=== PATIENT | male | born 1995 | race Caucasian/White ===

== ENCOUNTER 2017-06-06 07:32 | Emergency (ER) | payer BC ==
[~2017-06-06] VITALS: Ht 188 cm; Wt 85.5 kg
[~2017-06-06 07:32] MED LIST: DICY10CA55 PO
[2017-06-06 07:36] VITALS: Ht 188 cm; Wt 85.5 kg
[2017-06-06 08:12] VITALS: TEMP 37
[2017-06-06 08:20] LABS: HEMATOCRIT 44.5 % (42-52); HEMOGLOBIN 15.4 g/dL (14.0-18.0); MEAN CELL VOLUME 85.4 fL (80-100); MEAN CORPUSCULAR HEMOGLOBIN 29.6 pg (25-34); MEAN CORPUSCULAR HGB CONC 34.6 g/dl (32-36); MEAN PLATELET VOLUME 9.9 fL (7.4-10.4); PLATELET COUNT 168 K/uL (130-400); RED CELL DISTRIBUTION WIDTH CV 12.8 % (11.5-14.5); RED CELL DISTRIBUTION WIDTH SD 39.8 fL (36.4-46.3); WHITE BLOOD COUNT 9.33 K/uL (4.8-10.8)
--- NOTE | 2017-06-06 08:22 | EMERGENCY ROOM VISIT NOTE ---
History First contact with patient: 07:40 Chief Complaint: RECTAL BLEEDING Stated Complaint: BLOODY STOOL,VOMITING,PAIN IN ABD Nursing Triage Summary: pt reports he started with left abd pain and today bloody stools. feels nauseated and vomited this am. has colonoscopy and uppper gi study on jun 13, cannot take pain in abd History of Present Illness The patient is a 22 year old male who presents to the Emergency Room with complaints of left lower quadrant abdominal pain which began Sunday. The patient states yesterday, the pain seemed to worsen. This morning, the patient states he had one episode of vomiting. He states he has had a decreased appetite and hasn't wanted to eat much, so he did vomit bile. He is already a patient of SHAWN James of [facility]. He has seen her regarding 4-5 month-long history of bloody stool which he describes as liquid. The patient states he continues to have the bloody diarrhea, but this is no different than it has been for the past several months. The patient did contact his canoe inspector yesterday, and did have an x-ray completed at [facility] yesterday. He states he was also started on Protonix and Dicyclomine yesterday. He took one dose of Dicyclomine, and notes it did not help, so despite being instructed to take it TID, he did not take anymore. He states the pain is intermittent, but describes it as sharp and "brings me to my knees" when it occurs. He rates it currently 2/ 10, but 10/10 at its worst. He last experienced the pain at 2:30am. The patient denies any fever, chills, nausea, constipation, chest pain, dyspnea, urinary symptoms, recent illness, cough, or congestion. He states the abdominal pain is new for him since the stool has been bloody for the past 4-5 months. Review of Systems A complete 10 point review of systems was reviewed with the patient with pertinent positives and negatives as per history of present illness. All else were negative. Past Medical/Surgical History Medical Problems: (1) No Known Active Medical Problems Family History No pertinent family history Social History Smoking Status: Never Smoker Alcohol Use: occasionally Marital Status: single Housing Status: lives with family Occupation Status: employed Current/Historical Medications Scheduled Dicyclomine Hcl (Bentyl), 1 CAP PO TID Pantoprazole (Protonix), 20 MG PO DAILY Physical Exam Vital Signs Date Time Temp Pulse Resp B/P (MAP) Pulse Ox O2 Delivery O2 Flow Rate FiO2 06/06/17 11:47 101 18 176/81 06/06/17 11:06 88 17 140/77 97 Room Air 06/06/17 09:48 78 18 105/71 94 Room Air 06/06/17 09:10 108 18 149/78 98 Room Air 06/06/17 08:12 37.0 115 18 166/92 98 Room Air 06/06/17 07:36 37.0 115 18 136/80 95 Room Air Physical Exam VITALS: Vitals are noted on the nurse's note and reviewed by myself. Vital signs stable. GENERAL: This is a 22-year-old white male, in no acute distress, nondiaphoretic , well-developed well-nourished. The patient is lying comfortably on the litter and does not appear to be in any significant discomfort. SKIN: The skin was without rashes, erythema, edema, or bruising. There is no tenting of the skin. Capillary reflex less than 2 seconds. HEAD: Normocephalic atraumatic. EARS: External auditory canals clear, tympanic membranes pearly acevedo without erythema or effusion bilaterally. EYES: Pupils equal round and reactive to light and accommodation. Conjunctivae without injection, sclerae without icterus. Extraocular movements intact. NOSE: Patent, turbinates without inflammation or discharge. No sinus tenderness. MOUTH: Mucous membranes moist. Tonsils are not enlarged. Pharynx without erythema or exudate. Uvula midline. Airway patent. Tongue does not deviate. NECK: Supple without nuchal rigidity. No lymphadenopathy. No thyromegaly. Cervical spine is nontender. No JVD. HEART: Regular rate and rhythm without murmurs gallops or rubs. LUNGS: Clear to auscultation bilaterally without wheezes, rales or rhonchi. No dullness to percussion. No retractions or accessory muscle use. ABDOMEN: Positive bowel sounds x 4. Normal tympanic percussion. Mild tenderness in the left lower quadrant. The abdomen is otherwise soft, nontender , without masses or organomegaly. Dockery sign negative. No guarding or rebound tenderness. Rovsing's test negative. MUSCULOSKELETAL: No muscle atrophy, erythema, or edema noted. Full range of motion without joint tenderness in all extremities. No tenderness to palpation. Normal gait. Strength 5/5 throughout. NEURO: Patient was alert and oriented to person place and time. Normal sensation to light and sharp touch. Deep tendon reflexes 2+ throughout. No focal neurological deficits. Medical Decision & Procedures ER Provider Diagnostic Interpretation: CBC was without leukocytosis, anemia, thrombocytopenia. CMP did not show any significant renal, hepatic, or electrolyte abnormalities. Lipase was normal. Urinalysis was positive for 4+ ketones. There were epithelial cells noted. There were no signs of infection, and no blood. ABD/PELVIS IV AND ORAL CONT CT DOSE: 314.57 mGy.cm HISTORY: Pain. Nausea. LLQ abdominal pain TECHNIQUE: Multiaxial CT images of the abdomen and pelvis were performed following the use of intravenous and oral contrast. A dose lowering technique was utilized adhering to the principles of ALARA. COMPARISON STUDY: None. FINDINGS: Lung bases are clear. Liver spleen and pancreas are uniform. Kidneys are negative for hydronephrosis. The upper abdominal bowel pattern is nonobstructive. There are findings of considerable wall thickening of the distal descending colon as well as bulk of the rectosigmoid. There is mild pericolonic infiltrative change. There is no evidence for abscess collection or obstruction. Remainder the colon is unremarkable. The appendix is normal. There are several small reactive periaortic nodes not exceeding 9 mm. There are several small reactive mesenteric nodes. Trace amount of free fluid within the pelvic cul-de-sac most likely reactive. IMPRESSION: 1. Nonspecific colitis with considerable wall thickening of the sigmoid and distal descending colon. 2. No evidence for drainable abscess or collection. 3. Small amount of free fluid within the pelvic cul-de-sac most likely reactive The above report was generated using voice recognition software. It may contain grammatical, syntax or spelling errors. Electronically signed by: Gigi Cavanaugh M.D. 06/06/2017 10:57 AM Dictated Date/Time: 06/06/2017 10:52 AM Laboratory Results 06/06/17 08:05 Red Blood Count 5.21, Mean Corpuscular Volume 85.4, Mean Corpuscular Hemoglobin 29.6, Mean Corpuscular Hemoglobin Concent 34.6, Mean Platelet Volume 9.9, Neutrophils (%) (Auto) 76.6, Lymphocytes (%) (Auto) 11.8, Monocytes (%) (Auto) 9.2, Eosinophils (%) (Auto) 2.0, Basophils (%) (Auto) 0.2, Neutrophils # (Auto) 7.14, Lymphocytes # (Auto) 1.10, Monocytes # (Auto) 0.86, Eosinophils # (Auto) 0.19, Basophils # (Auto) 0.02 06/06/17 08:05 Test 06/06/17 08:05 06/06/17 09:05 White Blood Count 9.33 K/uL (4.8-10.8) Red Blood Count 5.21 M/uL (4.7-6.1) Hemoglobin 15.4 g/dL (14.0-18.0) Hematocrit 44.5 % (42-52) Mean Corpuscular Volume 85.4 fL (80-100) Mean Corpuscular Hemoglobin 29.6 pg (25-34) Mean Corpuscular Hemoglobin Concent 34.6 g/dl (32-36) Platelet Count 168 K/uL (130-400) Mean Platelet Volume 9.9 fL (7.4-10.4) Neutrophils (%) (Auto) 76.6 % Lymphocytes (%) (Auto) 11.8 % Monocytes (%) (Auto) 9.2 % Eosinophils (%) (Auto) 2.0 % Basophils (%) (Auto) 0.2 % Neutrophils # (Auto) 7.14 K/uL (1.4-6.5) Lymphocytes # (Auto) 1.10 K/uL (1.2-3.4) Monocytes # (Auto) 0.86 K/uL (0.11-0.59) Eosinophils # (Auto) 0.19 K/uL (0-0.5) Basophils # (Auto) 0.02 K/uL (0-0.2) RDW Standard Deviation 39.8 fL (36.4-46.3) RDW Coefficient of Variation 12.8 % (11.5-14.5) Immature Granulocyte % (Auto) 0.2 % Immature Granulocyte # (Auto) 0.02 K/uL (0.00-0.02) Dohle Bodies 1+ Anion Gap 13.0 mmol/L (3-11) Est Creatinine Clear Calc Drug Dose 154.1 ml/min Estimated GFR () 140.7 Estimated GFR (Non- 121.4 BUN/Creatinine Ratio 18.0 (10-20) Calcium Level 9.1 mg/dl (8.5-10.1) Total Bilirubin 1.0 mg/dl (0.2-1) Aspartate Amino Transf (AST/SGOT) 12 U/L (15-37) Alanine Aminotransferase (ALT/SGPT) 18 U/L (12-78) Alkaline Phosphatase 58 U/L (45-117) Total Protein 7.4 gm/dl (6.4-8.2) Albumin 3.4 gm/dl (3.4-5.0) Globulin 4.0 gm/dl (2.5-4.0) Albumin/Globulin Ratio 0.9 (0.9-2) Lipase 73 U/L (73-393) Urine Color DK YELLOW Urine Appearance CLEAR (CLEAR) Urine pH 5.0 (4.5-7.5) Urine Specific [place] 1.031 (1.000-1.030) Urine Protein 1+ (NEG) Urine Glucose (UA) NEG (NEG) Urine Ketones 4+ (NEG) Urine Occult Blood NEG (NEG) Urine Nitrite NEG (NEG) Urine Bilirubin NEG (NEG) Urine Urobilinogen NEG (NEG) Urine Leukocyte Esterase NEG (NEG) Urine WBC (Auto) 1-5 /hpf (0-5) Urine RBC (Auto) 0-4 /hpf (0-4) Urine Hyaline Casts (Auto) 1-5 /lpf (0-5) Urine Epithelial Cells (Auto) 5-10 /lpf (0-5) Urine Bacteria (Auto) NEG (NEG) ED Course The patient was seen and evaluated as above in room B2. IV access was obtained and labs were drawn. Attempted to contact the patient's provider, SHAWN James from [facility]. She is not in the office this week. The resident had ordered the patient's medication and Xray yesterday, and is not in the office today either. The alumni secretary did look for the abdominal X-ray report, but states it is in progress and has not been read yet. (Our case management associate does not yet have access to [employer], so was unable to look for the x-ray here in the ED). I spoke with the patient regarding CT scan of the abdomen/pelvis vs. no scan. The patient has not had a scan since his GI symptoms began. Risks of radiation vs. benefits of potentially locating the source of the patient's symptoms were discussed. He would like to proceed with scan at this time. CT scan was performed. This was consistent with colitis. There is no abscess noted. I discussed these results with the patient at bedside. I did offer the patient pain medication and nausea medication. He declines. I encouraged him to use the Bentyl which was prescribed to him by his canoe inspector. He was also encouraged to eat a bland diet. He is to continue to follow up with his canoe inspector and have the scope was performed which are ready scheduled. Discharge instructions reviewed, and the patient was discharged home in good condition. Medical Decision Differential diagnosis includes: Diverticulitis, Crohn's Disease, Ulcerative Colitis, infectious colitis, c. diff., appendicitis, pancreatitis, cholecystitis , gallstones, UTI, nephrolithiasis, malignancy, and others This is a 22-year-old male who presents today complaining of left lower quadrant abdominal pain. He five-month history of bloody stool, which is being evaluated by gastroenterology already. The patient was unable to see his provider regarding the abdominal pain, but did call the office and was sent for an x-ray and given a prescription for Bentyl and Protonix by the resident. The patient is concerned that there could be something serious going on. He would like some answers or a diagnosis. I did have a long discussion with the patient regarding the possibility that we will not come to a definite diagnosis today, as the colonoscopy and EGD will be more sensitive test. The patient's symptoms are consistent with a colitis, however the etiology is uncertain. The patient will continue to follow up with his canoe inspector outpatient. Medication Reconcilliation Current Medication List: was personally reviewed by me Blood Pressure Screening Patient's blood pressure: Normal blood pressure Impression Primary Impression: Colitis Additional Impression: Abdominal pain Departure Information Dispostion Home / Self-Care Condition GOOD Referrals No Doctor, Assigned (PCP) Demi Berman ., SHAWN Patient Instructions ED Abdominal Pain Excl Appendx Male, My [facility] Additional Instructions You were seen in the emergency department today for left lower quadrant abdominal pain. Labs and imaging studies did not reveal any acute findings for your symptoms. Please take these dicyclomine which you were prescribed by your GI provider for the pain. After one week, if you are not experiencing improvement on the 20mg dose three times daily, you may increase to 40mg three times daily. Please continue to work closely with your canoe inspector regarding the bloody stool and abdominal pain. Please do not miss your appointment for the scope scheduled for next week. Return to the ED for worsening pain which is not relieved with medication, changing stool pattern, chest pain, fever, nausea, vomiting, or other concerning symptoms. Problem Qualifiers Additional Impression: Abdominal pain Abdominal location: left lower quadrant Qualified Codes: R10.32 - Left lower quadrant pain
[2017-06-06] MEDS ORDERED: PRT/20 PO (08:33)
[2017-06-06 08:38] LABS: ALBUMIN 3.4 gm/dl (3.4-5.0); CALCIUM 9.1 mg/dl (8.5-10.1); CREATININE 0.86 mg/dl (0.60-1.40); POTASSIUM 3.7 mmol/L (3.5-5.1)
[2017-06-06 08:40] LABS: BASO % 0.2 %; BASO ABS # 0.02 K/uL (0-0.2); EOS ABS # 0.19 K/uL (0-0.5); IG# 0.02 K/uL (0.00-0.02); LYMPH % 11.8 %; MONO % 9.2 %; MONO ABS # 0.86 K/uL (0.11-0.59); NEUT % 76.6 %; NEUT ABS # 7.14 K/uL (1.4-6.5)
[2017-06-06 08:41] LABS: TOTAL PROTEIN 7.4 gm/dl (6.4-8.2)
[2017-06-06] MEDS ORDERED: OPTIRAY 320 IV PRN (08:45)
--- NOTE | 2017-06-06 10:59 | DIAGNOSTIC IMAGING REPORT ---
ABD/PELVIS IV AND ORAL CONT CT DOSE: 314.57 mGy.cm HISTORY: Pain. Nausea. LLQ abdominal pain TECHNIQUE: Multiaxial CT images of the abdomen and pelvis were performed following the use of intravenous and oral contrast. A dose lowering technique was utilized adhering to the principles of ALARA. COMPARISON STUDY: None. FINDINGS: Lung bases are clear. Liver spleen and pancreas are uniform. Kidneys are negative for hydronephrosis. The upper abdominal bowel pattern is nonobstructive. There are findings of considerable wall thickening of the distal descending colon as well as bulk of the rectosigmoid. There is mild pericolonic infiltrative change. There is no evidence for abscess collection or obstruction. Remainder the colon is unremarkable. The appendix is normal. There are several small reactive periaortic nodes not exceeding 9 mm. There are several small reactive mesenteric nodes. Trace amount of free fluid within the pelvic cul-de-sac most likely reactive. IMPRESSION: 1. Nonspecific colitis with considerable wall thickening of the sigmoid and distal descending colon. 2. No evidence for drainable abscess or collection. 3. Small amount of free fluid within the pelvic cul-de-sac most likely reactive The above report was generated using voice recognition software. It may contain grammatical, syntax or spelling errors. Electronically signed by: Gigi Cavanaugh M.D. 06/06/2017 10:57 AM Dictated Date/Time: 06/06/2017 10:52 AM
[2017-06-06 11:06] VITALS: O2SAT 97
[2017-06-06 11:47] VITALS: BP 176/81; PULSE 101
[2017-06-07] MEDS ORDERED: MULT-506 PO (16:17)
[2017-06-07] MEDS ORDERED: ASCO100T4 PO (16:17)
[2017-06-07] MEDS ORDERED: PRT/20 PO (16:18)
[2017-06-10] MEDS ORDERED: PRD5 OR ×2 (13:55→13:59)
[2017-06-10] MEDS ORDERED: PRED20TA2 PO (13:55)
[2017-06-10] MEDS ORDERED: PRED10TA PO (13:55)
[2017-06-10] MEDS ORDERED: PRD20 OR (13:55)
[2017-06-10] MEDS ORDERED: PRD10 OR (13:59)
[2017-06-10] MEDS ORDERED: ASC400 PO (14:02)
[2017-06-10] MEDS ORDERED: RWSE PR (14:02)
[2017-06-10] MEDS ORDERED: CPR500 OR (14:39)
[2017-06-10] MEDS ORDERED: METR500T PO (14:39)
[2017-06-11] MEDS ORDERED: MESA800T2 OR (09:54)
== END 2017-06-06 11:49 | disposition home or self-care (01) ==
LOC: C.EDB 07:35
DX: K52.9 Noninfective gastroenteritis and colitis, unspecified (principal)

== ENCOUNTER 2017-06-07 14:37 | Inpatient (IN) | payer BC ==
[~2017-06-07] VITALS: Ht 190.5 cm; Wt 83.0 kg
[~2017-06-07 14:37] MED LIST changes: +PRT/20 PO
--- NOTE | 2017-06-07 14:51 | NUR ---
A: Pt arrived to room 450-1. ADT nurse paged for admission to be complete. Patient verbalizes no distress at this time. Will follow.
[2017-06-07 15:04] VITALS: BP 162/87; PULSE 92; TEMP 37.1; Ht 190.5 cm; Wt 83.0 kg
[2017-06-07] MEDS ORDERED: ONDANSETRON INJ 2 MG/ML 2 ML VIAL IV PRN (15:15)
[2017-06-07] MEDS ORDERED: ACETAMINOPHEN 325 MG TAB PO PRN (15:15)
[2017-06-07 16:00] VITALS: O2SAT 97
--- NOTE | 2017-06-07 16:00 | NUR ---
A: Pt a&Ox4. Independent OOB to the bathroom. Reports occasional abdominal pain but is pain free at this time. Pt is ordered IV antibiotics, IVF and IV steroids. Colonoscopy scheduled for tomorrow. Pt is to start bowel prep this afternoon. Pt is agreeable. Will continue to monitor.
--- NOTE | 2017-06-07 16:11 | Gastrointestinal Consultation ---
Gastrointestinal Consultation Date of Consultation: Jun 07, 2017 Attending Physician: Brina Acevedo Consulting Physician: Franco Keenan Reason for Consultation: Diarrhea ; possible UC History of Present Illness Patient is a 22 year old male who was sent as a direct admission by Dr. Wendi Tinajero for bloody diarrhea and possible dehydration. He's been having bloody diarrhea since 5 months ago, admitted about 40 lbs weight loss so far. In the last month diarrhea is worse, BM up to over 11x a day. He denies any fever, chills, CP, SOB. Does have LLQ area abd pain. Denies any sick contact but family does own a farm and he goes hunting. Has well water at home. He had been seen in outpt GI clinic by SHAWN James last week. Stool studies negative for infections, Cdiff. Arrangements made for outpt colonoscopy on . Was prescribed Bentyl and Protonix but said hasn't been able to take them. He however came to [facility] ED yesterday w worsening bloody diarrhea, pain and n/v. CBC, CMP relatively normal. No stool studies done. CT abd/pelvis w non specific thickening of sigmoid and distal descending colon area. No family hx of autoimmune diseases, colorectal ca, or IBD. Does chew tobacco, but no smoking, ETOH about 1 beer a day, no illicit drugs. Past Medical/Surgical History Medical Problems: (1) Colitis Status: Acute Past Medical History: None Past Surgical History: Blanchard teeth removal Family History No pertinent family history Social History Smoking Status: Never Smoker Alcohol Use: occasionally Drug Use: none Marital Status: single Housing Status: lives with family Occupation Status: employed Allergies Coded Allergies: Amoxicillin (Unverified Allergy, Severe, RASH, 06/06/17) Azithromycin (Unverified Allergy, Severe, RASH, 06/06/17) Current Medications Home Meds and Scripts Medications Dose Route/Sig Max Daily Dose Days Date Category Bentyl (Dicyclomine Hcl) 10 Mg Cap 1 Cap PO TID 06/06/17 Reported Protonix (Pantoprazole Sodium) 20 Mg Tab 20 Mg PO DAILY 06/06/17 Reported Review of Systems Constitutional: + weight loss, + weakness, No fever, No chills Respiratory: No cough, No shortness of breath Cardiac: No chest pain Abdomen: + see HPI, + pain (LLQ), + nausea, + vomiting, + diarrhea, + GI bleeding Skin: No rash, No itch, No jaundice Physical Exam Date Time Temp Pulse Resp B/P (MAP) Pulse Ox O2 Delivery O2 Flow Rate FiO2 06/07/17 15:04 37.1 92 16 162/87 Room Air General Appearance: WD/WN, no apparent distress Eyes: normal inspection, PERRL, EOMI Neck: supple, no JVD, trachea midline Respiratory/Chest: normal breath sounds, no respiratory distress, no accessory muscle use Cardiovascular: regular rate, rhythm, no gallop, no murmur Abdomen: normal bowel sounds, soft, + tenderness (LLQ) Extremities: normal inspection, no pedal edema, no calf tenderness Neurologic/Psych: alert, normal mood/affect, oriented x 3 Skin: normal color, no jaundice, no rash Laboratory Results Last 24 Hours Test 06/07/17 15:10 06/07/17 15:50 Impression Patient is a 22 year old male with bloody diarrhea, LLQ abd pain, poor PO intake , n/v. CBC, CMP, stool studies so far unremarkable. CT abd/pelvis w non specific sigmoid and distal descending colon thickening. Plan - Repeat basic labs and stool studies - IVF resuscitation - Methylprednisolone 20mg q6hrs IV - Cipro and Flagyl IV antibx - CL diet, NPO at midnight for colonoscopy tomorrow to r/o IBD. Bowel prep ordered. ATTESTATION: I have performed a history and physical examination of this patient and reviewed the electronic record. Specifically, his history is highly suggestive of ulcerative colitis. We will plan a colonoscopy and treat accordingly. I have discussed the case with SHAWN Carmen. The above note reflects my findings , conclusions, and recommendations. Franco Keenan MD
[2017-06-07] MEDS ORDERED: MULT-506 PO (16:17)
[2017-06-07] MEDS ORDERED: ASCO100T4 PO (16:17)
[2017-06-07] MEDS ORDERED: PRT/20 PO (16:18)
[2017-06-07 16:19] LABS: HEMATOCRIT 43.6 % (42-52); HEMOGLOBIN 15.4 g/dL (14.0-18.0); MEAN CELL VOLUME 83.4 fL (80-100); MEAN CORPUSCULAR HEMOGLOBIN 29.4 pg (25-34); MEAN CORPUSCULAR HGB CONC 35.3 g/dl (32-36); MEAN PLATELET VOLUME 10.1 fL (7.4-10.4); PLATELET COUNT 212 K/uL (130-400); RED CELL DISTRIBUTION WIDTH CV 12.8 % (11.5-14.5); RED CELL DISTRIBUTION WIDTH SD 38.3 fL (36.4-46.3); WHITE BLOOD COUNT 9.44 K/uL (4.8-10.8)
[2017-06-07 16:39] LABS: ALBUMIN 3.2 gm/dl (3.4-5.0); CALCIUM 9.1 mg/dl (8.5-10.1); CREATININE 0.81 mg/dl (0.60-1.40); POTASSIUM 3.5 mmol/L (3.5-5.1)
[2017-06-07 16:42] LABS: TOTAL PROTEIN 7.3 gm/dl (6.4-8.2)
[2017-06-07 16:52] LABS: BASO % 0.3 %; BASO ABS # 0.03 K/uL (0-0.2); EOS % 2.4 %; EOS ABS # 0.23 K/uL (0-0.5); IG# 0.03 K/uL (0.00-0.02); LYMPH % 14.5 %; LYMPH ABS # 1.37 K/uL (1.2-3.4); MONO % 11.2 %; MONO ABS # 1.06 K/uL (0.11-0.59); NEUT % 71.3 %; NEUT ABS # 6.72 K/uL (1.4-6.5)
[2017-06-07] MEDS ORDERED: POLYETHYLENE (MIRALAX) 17 GM PACK PO ONE ×2 (17:00→21:00)
[2017-06-07] MEDS ORDERED: BISACODYL 5 MG TABEC PO ONE (17:00)
--- NOTE | 2017-06-07 17:03 | History and Physical ---
History & Physical Date & Time of Service: Jun 07, 2017 ~ 15:15 Chief Complaint: BRBPR, Diarrhea Primary Care Physician: Gigi Abbasi M.D. History of Present Illness 22 year old male who was referred by direct admission by the GI clinic for dehydration and diarrhea. Patient reports his symptoms have been going on for the past 6 months and have been progressively getting worse. He reports up to 11 bowel movements per day. He is having bright red blood. He denies dark tarry stools. He has had some intermittent LLQ abdominal pain. He has had a poor appetite and developed vomiting the past two days. He denies hematemesis or coffee ground emesis. He reports a 40 pound weight loss. He has had chills but did not take his temperature. He reports feeling lightheaded and dizzy, no syncopal events. He denies chest pain, shortness of breath, palpitations. No urinary symptoms. He has had two ER visits for these symptoms, most recently being on 06/06. He had a CT abd/pelvis that showed wall thickening of the sigmoid and distal descending colon. At the time of my exam, patient is resting in bed in no acute distress. Past Medical/Surgical History Surgical Problems: (1) History of incision and drainage Status: Chronic (2) S/P wisdom tooth extraction Status: Chronic Family History negative for cancers, DM, and CVA Social History Smoking Status: Never Smoker Smokeless Tobacco Use: Yes Alcohol Use: 1 beer/day Immunizations History of Tetanus Vaccine?: Yes Tetanus Immunization Date: Mar 30, 2009 History of Pneumococcal: Yes Pneumococcal Date: 1993 Multi-Drug Resistant Organisms History of MDRO: No Allergies Coded Allergies: Amoxicillin (Unverified Allergy, Severe, RASH, 06/06/17) Azithromycin (Unverified Allergy, Severe, RASH, 06/06/17) Home Medications Scheduled Ascorbic Acid (Vitamin C), 100 MG PO DAILY Dicyclomine Hcl (Bentyl), 1 CAP PO TID Multivitamin (Multivitamin), 1 TAB PO DAILY Pantoprazole Sodium (Protonix), 1 TAB PO DAILY Review of Systems ROS per HPI, all other systems reviewed and negative Physical Exam Vital Signs Date Time Temp Pulse Resp B/P (MAP) Pulse Ox O2 Delivery O2 Flow Rate FiO2 06/07/17 15:04 37.1 92 16 162/87 Room Air General Appearance: no apparent distress, + thin Head: normocephalic, atraumatic Eyes: normal inspection, EOMI, sclerae normal ENT: hearing grossly normal, + pertinent finding (mucous membranes moist) Neck: supple, no JVD, trachea midline Respiratory/Chest: lungs clear, normal breath sounds, no respiratory distress Cardiovascular: regular rate, rhythm, no edema, normal peripheral pulses Abdomen/GI: normal bowel sounds, non tender, soft, no organomegaly Extremities/Musculoskelatal: normal inspection, no calf tenderness, normal capillary refill Neurologic/Psych: no motor/sensory deficits, alert, normal mood/affect, oriented x 3 Skin: normal color, warm/dry Diagnostics Laboratory Results Results Past 24 Hours Test 06/07/17 15:10 06/07/17 15:50 Range/Units White Blood Count 9.44 4.8-10.8 K/uL Red Blood Count 5.23 4.7-6.1 M/uL Hemoglobin 15.4 14.0-18.0 g/dL Hematocrit 43.6 42-52 % Mean Corpuscular Volume 83.4 80-100 fL Mean Corpuscular Hemoglobin 29.4 25-34 pg Mean Corpuscular Hemoglobin Concent 35.3 32-36 g/dl Platelet Count 212 130-400 K/uL Mean Platelet Volume 10.1 7.4-10.4 fL RDW Standard Deviation 38.3 36.4-46.3 fL RDW Coefficient of Variation 12.8 11.5-14.5 % Microbiology Results 06/07/17 C.difficile Toxin B Gene (PCR), Ordered Pending 06/07/17 Shiga Toxin Test, Ordered Pending 06/07/17 Stool Culture, Ordered Pending 06/07/17 Fungal Smear, Ordered Pending 06/07/17 Fungal Culture, Ordered Pending Impression Assessment and Plan DIARRHEA - patient presenting from the GI office for direction admission for evaluation of persistent bloody diarrhea and dehydration - symptoms have been going on for 6 months and patient has had a 40 pound weight loss - CT abd/pelvis from 06/06 - non specific sigmoid and distal descending colon thickening - per GI - suspicious for ulcerative colitis - will repeat labs and stool studies - IVF - start IV solumedrol 20mg q6h - Cipro and Flagyl - plan for colonoscopy tomorrow DVT PROPHYLAXIS - SCDs DISPO - In my clinical judgment this beneficiary meets acute admission criteria, established by [facility], that includes being hospitalized through two midnights. Attending Addendum: The patient was seen and examined Has been having Bloody diarrhea ~10-12 times daily for a while Failed Out patient treatment Was seen by the GI today and was advised to come in for Colonoscopy No extraintestinal symptoms O/E Minimal distress at rest Hemodynamically stable Chest-clear Abdomen-soft ,tender LLQ ,no guarding and or rigidity Labs noted Agree with assessment and plan. Dr Reza Acevedo Advanced Directives Existing Living Will: No Existing Power of Estate Planner: No VTE Prophylaxis VTE Risk Assessment Done? Y/N: Yes Risk Level: Low
[2017-06-07] MEDS: METRONIDAZOLE / NSS 500 MG in PREMIXED NSS 100 ML IV SCH ×2 (17:24→23:59)
[2017-06-07] MEDS: SODIUM CHLORIDE 0.9% 1000ML 1,000 ML IV SCH (17:25)
[2017-06-07] MEDS: CIPROFLOXACIN / D5W 400 MG in PREMIXED IN D5W 200 ML IV SCH (17:28)
[2017-06-07] MEDS: METHYLPREDNISOLONE IV 20 MG in SYRINGE 0 ML IV SCH (17:31)
[2017-06-07] MEDS: DICYCLOMINE HCL 10 MG CAP PO SCH (19:43)
[2017-06-07 19:53] VITALS: BP 156/86; PULSE 102; TEMP 36.9; O2SAT 97
--- NOTE | 2017-06-07 20:00 | NUR ---
OBS: Pt tolerated clear liquid diet and bowel prep thus far. No vomiting. IV zofran given for nausea with increased intake of fluids due to the bowel prep. Pt verbalizes no needs at this time. IVF infusing. Pt pleasant with care. BP and HR slightly elevated. Will continue to monitor.
--- NOTE | 2017-06-07 22:12 | NUR ---
A: Patient is A&Ox4. He requests to change his person to notify from his mother to his fiance, Jose Sonia. [place] made changes in chart. Patient verbalizes that he wishes Jose to act as POA should he not be able to make decisions for himself. The patient was educated that selecting a POA is a legal process and would take official documentation but this RN would make note of this request.
[2017-06-07 23:48] VITALS: BP 156/83; PULSE 95; TEMP 36.9; O2SAT 96
[2017-06-08 00:05] VITALS: O2SAT 97
--- NOTE | 2017-06-08 00:05 | NUR ---
OBS: Upon assessment pt alert & oriented x 4. Lungs clear. Abdomen soft, nondistended. IVF per MD order. Pt NPO after MN for colonoscopy in AM. Pt able to finish prep. Independent in room. Will continue to monitor.
--- NOTE | 2017-06-08 04:00 | NUR ---
OBS: No change in pt condition. Pt resting in bed with eyes closed. Denies further needs. NPO for procedure in AM.
[2017-06-08] MEDS: SODIUM CHLORIDE 0.9% 1000ML 1,000 ML IV SCH ×2 (05:19→20:09)
[2017-06-08] MEDS: CIPROFLOXACIN / D5W 400 MG in PREMIXED IN D5W 200 ML IV SCH ×2 (05:19→16:18)
[2017-06-08] MEDS: METHYLPREDNISOLONE IV 20 MG in SYRINGE 0 ML IV SCH ×5 (05:50→23:23)
[2017-06-08 07:15] VITALS: BP 140/79; PULSE 76; TEMP 36.4; O2SAT 96
[2017-06-08] MEDS: METRONIDAZOLE / NSS 500 MG in PREMIXED NSS 100 ML IV SCH ×3 (07:46→23:23)
--- NOTE | 2017-06-08 08:00 | NUR ---
OBS Note/ID Note: Patient alert and oriented x4, vital signs stable, lung sounds clear on RA, pt denies any pain and states that it is improved from previous but still continuing to have intermittent pain, IV fluids infusing per MD order, pt tolerating NPO, ambulating independently in the room, call paul in reach, will continue to monitor, awaiting colonoscopy today, discharge plan uncertain at this time
--- NOTE | 2017-06-08 08:38 | History & Physical Bridge Note ---
H&P Re-Evaluation Bridge Note: I have examined the patient, reviewed the History & Physical and in the interval since the performance of the History & Physical I have noted the following changes of clinical significance: No changes noted
[2017-06-08] MEDS ORDERED: PROPOFOL IV EMULSION 10 MG/ML 20 ML VIAL IV ONE (09:04)
[2017-06-08] MEDS ORDERED: LIDOCAINE HCL 2% 2 ML VIAL (20MG/ML) ONE (09:04)
--- NOTE | 2017-06-08 09:19 | GI REPORT ---
Procedure Date: 06/08/2017 8:46 AM Procedure: Colonoscopy Indications: Chronic diarrhea, Hematochezia Medicines: Monitored Anesthesia Care Complications: No immediate complications. Estimated blood loss: None. Estimated Blood Loss: Estimated blood loss: none. Procedure: Pre-Anesthesia Assessment: - Prior to the procedure, a History and Physical was performed, and patient medications, allergies and sensitivities were reviewed. The patient's tolerance of previous anesthesia was reviewed. - ASA Grade Assessment: II - A patient with mild systemic disease. After I obtained informed consent, the scope was passed under direct vision. Throughout the procedure, the patient's blood pressure, pulse, and oxygen saturations were monitored continuously. The scope was introduced through the anus and advanced to the terminal ileum, with identification of the appendiceal orifice and IC valve. The colonoscopy was performed without difficulty. The patient tolerated the procedure well. The quality of the bowel preparation was adequate. The bowel preparation used was split dose MIralax. Findings: Inflammation characterized by altered vascularity, congestion (edema), erosions and granularity was found in a continuous and circumferential pattern from the rectum to the splenic flexure and from the ascending colon to the cecum. The severity of inflammation was worst in the rectum and sigmoid. The transverse colon was relatively spared. The inflammation was moderate to severe. Biopsies were taken with a cold forceps for histology. Fluid aspiration was performed through the scope suction channel. The amount of fluid collected was 10 mL. Sample(s) were sent for microbiology. The terminal ileum appeared normal. Impression: - Colitis. Inflammation was found from the rectum to the splenic flexure and from the ascending colon to the cecum. This was moderate in severity. Biopsied. - The examined portion of the ileum was normal. Recommendation: - Return patient to [facility] for ongoing care. Franco Keenan M.D. Franco Keenan MD 06/08/2017 9:18:46 AM This report has been signed electronically. Note Initiated On: 06/08/2017 8:46 AM I attest to the content of the Intraoperative Record and orders documented therein, exceptions below
--- NOTE | 2017-06-08 09:20 | Anesthesiology Progress Note ---
Anesthesia Post Op Note Date & Time Jun 08, 2017 at 09:20 Vital Signs Pain Intensity: 0.0 Vital Signs Past 12 Hours Date Time Temp Pulse Resp B/P (MAP) Pulse Ox O2 Delivery O2 Flow Rate FiO2 06/08/17 09:14 36.1 82 18 146/72 (96) 96 Room Air 06/08/17 08:32 36.4 87 18 143/79 (100) 96 Room Air 06/08/17 07:40 Room Air 06/08/17 07:15 36.4 76 18 140/79 (99) 96 Room Air 06/08/17 00:05 97 Room Air 06/07/17 23:48 36.9 95 18 156/83 (107) 96 Room Air Notes Mental Status: alert / awake / arousable, participated in evaluation Pt Amnestic to Procedure: Yes Nausea / Vomiting: adequately controlled Pain: adequately controlled Airway Patency, RR, SpO2: stable & adequate BP & HR: stable & adequate Hydration State: stable & adequate Anesthetic Complications: no major complications apparent
[2017-06-08] MEDS: DICYCLOMINE HCL 10 MG CAP PO SCH ×3 (10:32→20:09)
[2017-06-08] MEDS: MULTIVITAMIN TAB PO SCH (11:21)
[2017-06-08] MEDS: PANTOprazole SOD 40 MG TAB PO SCH (11:22)
[2017-06-08] MEDS: ASCORBIC ACID 500 MG TAB PO SCH (11:22)
--- NOTE | 2017-06-08 12:00 | NUR ---
OBS Note: Patient alert and oriented, returned from procedure at 1010, pt resting comfortably in bed, fiance at bedside, further assessment remains unchanged from previous note, call paul in reach, will continue to monitor
[2017-06-08 12:15] LABS: HEP C IGG 13 YRS+OLDER_RFLX NEG (NEG)
[2017-06-08] MEDS ORDERED: NURSING VERBAL MED ORDER ONE (12:45)
[2017-06-08] MEDS ORDERED: POTASSIUM CHLORIDE 20 MEQ TABCR PO ONE (14:45)
--- NOTE | 2017-06-08 14:53 | Progress Note ---
Progress Note Date of Service Jun 08, 2017. Progress Note Pt had colonoscopy which showed colitis, inflammation from rectum to splenic flexure, ascending colon to cecum. Biopsied. Path pending. - Advanced diet. - Continue Cipro/Flagyl coverage for at least 10 days - Started on Mesalamine 1600mg TID PO, Mesalamine 4g [place] enema qHS - Likely may need biologics as well, thus TB quantiferon test, acute hepatitis serologies obtained. Send message to GI clinic staff to check with pt's insurance about Humira vs Remicade coverage. - IV steroids, on DC may convert to PO form and taper as follows: Prednisone 40mg daily x 1 week, then 30mg daily x 1 week, 20mg daily x 1 week, 15mg daily x 1 week, 10mg daily x 1 week, then 5mg daily x 1 week. - No contraindication to DC home over weekend if tolerating diet well, diarrhea , bloody stools better.
[2017-06-08 15:38] VITALS: BP 150/76; PULSE 80; TEMP 36.7; O2SAT 96
[2017-06-08 16:00] VITALS: O2SAT 96
[2017-06-08 16:07] LABS: BASO % 0.1 %; BASO ABS # 0.01 K/uL (0-0.2); HEMATOCRIT 42.5 % (42-52); HEMOGLOBIN 14.9 g/dL (14.0-18.0); IG# 0.04 K/uL (0.00-0.02); LYMPH ABS # 0.66 K/uL (1.2-3.4); MEAN CORPUSCULAR HEMOGLOBIN 29.4 pg (25-34); MEAN PLATELET VOLUME 10.1 fL (7.4-10.4); MONO % 6.3 %; MONO ABS # 0.69 K/uL (0.11-0.59); NEUT % 87.2 %; NEUT ABS # 9.54 K/uL (1.4-6.5); PLATELET COUNT 260 K/uL (130-400); RED CELL DISTRIBUTION WIDTH CV 12.7 % (11.5-14.5); RED CELL DISTRIBUTION WIDTH SD 38.3 fL (36.4-46.3); WHITE BLOOD COUNT 10.94 K/uL (4.8-10.8)
[2017-06-08 16:15] LABS: MEAN CORPUSCULAR HGB CONC 35.1 g/dl (32-36)
[2017-06-08] MEDS: MESALAMINE 400 MG CAPDR PO SCH (16:41)
[2017-06-08 16:43] LABS: ALBUMIN 2.9 gm/dl (3.4-5.0); CREATININE 1.02 mg/dl (0.60-1.40); POTASSIUM 3.9 mmol/L (3.5-5.1); TOTAL PROTEIN 6.8 gm/dl (6.4-8.2)
--- NOTE | 2017-06-08 17:15 | Progress Note ---
Internal Med Progress Note Date of Service: Jun 08, 2017. Provider Documentation: SUBJECTIVE: Patient s/p colonoscopy. Comfortable and reports diminished abdominal discomfort but went to the bathroom afterwards and saw blood in stool still OBJECTIVE: Exam: General Appearance: no apparent distress Head: normocephalic, atraumatic Eyes: normal inspection, EOMI ENT: hearing grossly normal Neck: supple, no JVD, trachea midline Respiratory/Chest: lungs clear, normal breath sounds, no respiratory distress Cardiovascular: regular rate, rhythm, no edema, normal peripheral pulses Abdomen/GI: normal bowel sounds, non tender, soft, no organomegaly Extremities/Musculoskelatal: normal inspection, no calf tenderness, normal capillary refill Neurologic/Psych: no motor/sensory deficits, alert, normal mood/affect, oriented x 3 ASSESSMENT & PLAN: s/p colonoscopy on : Inflammation characterized by altered vascularity, congestion (edema), erosions and granularity was found in a continuous and circumferential pattern from the rectum to the splenic flexure and from the ascending colon to the cecum. The severity of inflammation was worst in the rectum and sigmoid. The transverse colon was relatively spared. The inflammation was moderate to severe. Biopsies were taken with a cold forceps for histology. Fluid aspiration was performed through the scope suction channel. The amount of fluid collected was 10 mL. Sample(s) were sent for microbiology. The terminal ileum appeared normal. Impression: Colitis. Inflammation was found from the rectum to the splenic flexure and from the ascending colon to the cecum. This was moderate in severity. Following GI recommendations for colitis: "- Advanced diet. - Continue Cipro/Flagyl coverage for at least 10 days - Started on Mesalamine 1600mg TID PO, Mesalamine 4g [place] enema qHS - Likely may need biologics as well, thus TB quantiferon test, acute hepatitis serologies obtained. Send message to GI clinic staff to check with pt's insurance about Humira vs Remicade coverage. - IV steroids, on DC may convert to PO form and taper as follows: Prednisone 40mg daily x 1 week, then 30mg daily x 1 week, 20mg daily x 1 week, 15mg daily x 1 week, 10mg daily x 1 week, then 5mg daily x 1 week. - No contraindication to DC home over weekend if tolerating diet well, diarrhea , bloody stools better." Labs drawn after reported episode of blood in stool have been stable with Hgb 14.9 Disposition and plan: will continue to observe the patient overnight and continue IV fluids while advancing diet, repeat labs on AM of 06/09/17. For when patient's labs stable and symptoms resolving, patient can then follow up with GI clinic and primary care Dr. Bobbi James on 06/12/17 at 12: 45 AM at [facility] in [facility] For re-scheduling [facility] appointments, patient can call [phone] Vital Signs: Date Time Temp Pulse Resp B/P (MAP) Pulse Ox O2 Delivery O2 Flow Rate FiO2 06/08/17 15:38 36.7 80 18 150/76 (100) 96 Room Air 06/08/17 09:43 69 18 150/98 (115) 99 Room Air 06/08/17 09:28 68 18 130/98 (109) 97 Room Air 06/08/17 09:14 36.1 82 18 146/72 (96) 96 Room Air 06/08/17 08:32 36.4 87 18 143/79 (100) 96 Room Air 06/08/17 07:40 Room Air 06/08/17 07:15 36.4 76 18 140/79 (99) 96 Room Air 06/08/17 00:05 97 Room Air 06/07/17 23:48 36.9 95 18 156/83 (107) 96 Room Air 06/07/17 19:53 36.9 102 18 156/86 (109) 97 Room Air Lab Results: Results Past 24 Hours Test 06/08/17 08:53 06/08/17 10:25 06/08/17 10:44 06/08/17 15:55 Range/Units Hepatitis B Surface Antigen NEG NEG Hepatitis B Surface Antibody NEG Hepatitis C Antibody NEG NEG White Blood Count 10.94 4.8-10.8 K/uL Red Blood Count 5.06 4.7-6.1 M/uL Hemoglobin 14.9 14.0-18.0 g/dL Hematocrit 42.5 42-52 % Mean Corpuscular Volume 84.0 80-100 fL Mean Corpuscular Hemoglobin 29.4 25-34 pg Mean Corpuscular Hemoglobin Concent 35.1 32-36 g/dl Platelet Count 260 130-400 K/uL Mean Platelet Volume 10.1 7.4-10.4 fL Neutrophils (%) (Auto) 87.2 % Lymphocytes (%) (Auto) 6.0 % Monocytes (%) (Auto) 6.3 % Eosinophils (%) (Auto) 0.0 % Basophils (%) (Auto) 0.1 % Neutrophils # (Auto) 9.54 1.4-6.5 K/uL Lymphocytes # (Auto) 0.66 1.2-3.4 K/uL Monocytes # (Auto) 0.69 0.11-0.59 K/uL Eosinophils # (Auto) 0.00 0-0.5 K/uL Basophils # (Auto) 0.01 0-0.2 K/uL RDW Standard Deviation 38.3 36.4-46.3 fL RDW Coefficient of Variation 12.7 11.5-14.5 % Immature Granulocyte % (Auto) 0.4 % Immature Granulocyte # (Auto) 0.04 0.00-0.02 K/uL Sodium Level 137 136-145 mmol/L Potassium Level 3.9 3.5-5.1 mmol/L Chloride Level 104 98-107 mmol/L Carbon Dioxide Level 27 21-32 mmol/L Anion Gap 7.0 3-11 mmol/L Blood Urea Nitrogen 13 7-18 mg/dl Creatinine 1.02 0.60-1.40 mg/dl Est Creatinine Clear Calc Drug Dose 131.1 ml/min Estimated GFR () 118.7 Estimated GFR (Non- 102.4 BUN/Creatinine Ratio 12.4 10-20 Random Glucose 131 70-99 mg/dl Calcium Level 9.0 8.5-10.1 mg/dl Magnesium Level 2.1 1.8-2.4 mg/dl Total Bilirubin 0.4 0.2-1 mg/dl Aspartate Amino Transf (AST/SGOT) 12 15-37 U/L Alanine Aminotransferase (ALT/SGPT) 18 12-78 U/L Alkaline Phosphatase 58 45-117 U/L Total Protein 6.8 6.4-8.2 gm/dl Albumin 2.9 3.4-5.0 gm/dl Globulin 3.9 2.5-4.0 gm/dl Albumin/Globulin Ratio 0.7 0.9-2 Microbiology Results 06/07/17 MRSA DNA Surveillance Screen - Final, Complete Specimen Negative for MRSA by DNA Probe 06/08/17 Rotavirus Antigen - Final, Complete SPECIMEN NEGATIVE FOR ROTAVIRUS ANTIGEN 06/08/17 WBC Smear, Received Pending 06/08/17 Shiga Toxin Test, Received Pending 06/08/17 Stool Culture, Received Pending
[2017-06-08] MEDS: MESALAMINE 4 GM/60 ML ENEMA BTL PR SCH (21:59)
[2017-06-08 23:50] VITALS: BP 157/71; PULSE 88; TEMP 36.6; O2SAT 97
[2017-06-09] MEDS: CIPROFLOXACIN / D5W 400 MG in PREMIXED IN D5W 200 ML IV SCH ×2 (04:01→15:49)
[2017-06-09] MEDS: METHYLPREDNISOLONE IV 20 MG in SYRINGE 0 ML IV SCH ×4 (05:41→23:13)
[2017-06-09] MEDS: METRONIDAZOLE / NSS 500 MG in PREMIXED NSS 100 ML IV SCH ×3 (07:11→23:13)
[2017-06-09] MEDS: SODIUM CHLORIDE 0.9% 1000ML 1,000 ML IV SCH ×2 (07:11→17:30)
[2017-06-09] MEDS: MULTIVITAMIN TAB PO SCH (07:12)
[2017-06-09] MEDS: MESALAMINE 400 MG CAPDR PO SCH ×3 (07:12→17:30)
[2017-06-09] MEDS: DICYCLOMINE HCL 10 MG CAP PO SCH ×3 (07:12→20:29)
[2017-06-09] MEDS: PANTOprazole SOD 40 MG TAB PO SCH (07:12)
[2017-06-09] MEDS: ASCORBIC ACID 500 MG TAB PO SCH (07:12)
[2017-06-09 07:21] VITALS: BP 145/73; PULSE 76; TEMP 36.6; O2SAT 97
--- NOTE | 2017-06-09 08:00 | NUR ---
ID: Patient admitted for diarrhea and dizziness. A&OX4. Denies pain, SOB, N/V. NSS infusing at 100ml/hr in the left wrist. Intermittent antibiotics. No edema, positive pulses. Lungs are clear throughout on room air. Abdomen is soft, nontender, nondistended. Per patient report, there is still trace amounts of blood in his stool. Independent in the room. Hourly rounding. Encouraged to ring for assistance. Will continue to monitor.
[2017-06-09 08:18] LABS: EOS % 0.1 %; EOS ABS # 0.01 K/uL (0-0.5); HEMATOCRIT 39.8 % (42-52); HEMOGLOBIN 13.5 g/dL (14.0-18.0); IG# 0.03 K/uL (0.00-0.02); LYMPH ABS # 0.79 K/uL (1.2-3.4); MEAN CELL VOLUME 84.9 fL (80-100); MEAN CORPUSCULAR HEMOGLOBIN 28.8 pg (25-34); MONO % 7.6 %; NEUT % 81.9 %; NEUT ABS # 6.47 K/uL (1.4-6.5); PLATELET COUNT 278 K/uL (130-400); RED CELL DISTRIBUTION WIDTH CV 12.8 % (11.5-14.5); RED CELL DISTRIBUTION WIDTH SD 39.4 fL (36.4-46.3)
[2017-06-09 08:23] LABS: MEAN CORPUSCULAR HGB CONC 33.9 g/dl (32-36)
[2017-06-09 08:39] LABS: ALBUMIN 2.7 gm/dl (3.4-5.0); CALCIUM 8.4 mg/dl (8.5-10.1); CREATININE 0.86 mg/dl (0.60-1.40); POTASSIUM 3.6 mmol/L (3.5-5.1); TOTAL PROTEIN 6.2 gm/dl (6.4-8.2)
[2017-06-09] MEDS ORDERED: POTASSIUM CHLORIDE 20 MEQ TABCR PO STA (11:09)
[2017-06-09 15:53] VITALS: BP 135/79; PULSE 75; TEMP 36.6; O2SAT 96
--- NOTE | 2017-06-09 18:36 | Progress Note ---
Internal Med Progress Note Date of Service: Jun 09, 2017. Provider Documentation: SUBJECTIVE: Patient seen and examined. No acute abdominal pain. However Continues to report of blood in stool OBJECTIVE: Exam: General Appearance: no apparent distress Head: normocephalic, atraumatic Eyes: normal inspection, EOMI ENT: hearing grossly normal Neck: supple, no JVD, trachea midline Respiratory/Chest: lungs clear, normal breath sounds, no respiratory distress Cardiovascular: regular rate, rhythm, no edema, normal peripheral pulses Abdomen/GI: normal bowel sounds, non tender, soft, no organomegaly Extremities/Musculoskelatal: normal inspection, no calf tenderness, normal capillary refill Neurologic/Psych: no motor/sensory deficits, alert, normal mood/affect, oriented x 3 ASSESSMENT & PLAN: s/p colonoscopy on : Inflammation characterized by altered vascularity, congestion (edema), erosions and granularity was found in a continuous and circumferential pattern from the rectum to the splenic flexure and from the ascending colon to the cecum. The severity of inflammation was worst in the rectum and sigmoid. The transverse colon was relatively spared. The inflammation was moderate to severe. Biopsies were taken with a cold forceps for histology. Fluid aspiration was performed through the scope suction channel. The amount of fluid collected was 10 mL. Sample(s) were sent for microbiology. The terminal ileum appeared normal. Impression: Colitis. Inflammation was found from the rectum to the splenic flexure and from the ascending colon to the cecum. This was moderate in severity. Following GI recommendations for colitis: - Continue Cipro/Flagyl coverage for at least 10 days - Started on Mesalamine 1600mg TID PO, Mesalamine 4g [place] enema qHS - Likely may need biologics as well, thus TB quantiferon test, acute hepatitis serologies obtained. Send message to GI clinic staff to check with pt's insurance about Humira vs Remicade coverage. - IV steroids, on DC may convert to PO form and taper as follows: Prednisone 40mg daily x 1 week, then 30mg daily x 1 week, 20mg daily x 1 week, 15mg daily x 1 week, 10mg daily x 1 week, then 5mg daily x 1 week. Patient's continues to report of having blood in stool. Is hemodynamically stable and comfortable however Hgb downtrending from admission Hgb 15.4 to 14.9 to 13.5. Disposition and plan: will continue to monitor patient in hospital due to blood in stool and downtrending Hgb For when patient's labs stable and symptoms resolving, patient can then follow up with GI clinic and primary care Dr. Bobbi James on 06/12/17 at 12: 45 AM at [facility] in [facility] For re-scheduling [facility] appointments, patient can call [phone] Vital Signs: Date Time Temp Pulse Resp B/P (MAP) Pulse Ox O2 Delivery O2 Flow Rate FiO2 06/09/17 16:00 Room Air 06/09/17 15:53 36.6 75 16 135/79 (97) 96 Room Air 06/09/17 08:00 Room Air 06/09/17 07:21 36.6 76 16 145/73 (97) 97 Room Air 06/08/17 23:50 36.6 88 18 157/71 (99) 97 Room Air 06/08/17 23:25 Room Air Lab Results: Results Past 24 Hours Test 06/09/17 07:58 Range/Units White Blood Count 7.90 4.8-10.8 K/uL Red Blood Count 4.69 4.7-6.1 M/uL Hemoglobin 13.5 14.0-18.0 g/dL Hematocrit 39.8 42-52 % Mean Corpuscular Volume 84.9 80-100 fL Mean Corpuscular Hemoglobin 28.8 25-34 pg Mean Corpuscular Hemoglobin Concent 33.9 32-36 g/dl Platelet Count 278 130-400 K/uL Mean Platelet Volume 10.0 7.4-10.4 fL Neutrophils (%) (Auto) 81.9 % Lymphocytes (%) (Auto) 10.0 % Monocytes (%) (Auto) 7.6 % Eosinophils (%) (Auto) 0.1 % Basophils (%) (Auto) 0.0 % Neutrophils # (Auto) 6.47 1.4-6.5 K/uL Lymphocytes # (Auto) 0.79 1.2-3.4 K/uL Monocytes # (Auto) 0.60 0.11-0.59 K/uL Eosinophils # (Auto) 0.01 0-0.5 K/uL Basophils # (Auto) 0.00 0-0.2 K/uL RDW Standard Deviation 39.4 36.4-46.3 fL RDW Coefficient of Variation 12.8 11.5-14.5 % Immature Granulocyte % (Auto) 0.4 % Immature Granulocyte # (Auto) 0.03 0.00-0.02 K/uL Sodium Level 137 136-145 mmol/L Potassium Level 3.6 3.5-5.1 mmol/L Chloride Level 104 98-107 mmol/L Carbon Dioxide Level 27 21-32 mmol/L Anion Gap 7.0 3-11 mmol/L Blood Urea Nitrogen 10 7-18 mg/dl Creatinine 0.86 0.60-1.40 mg/dl Est Creatinine Clear Calc Drug Dose 155.5 ml/min Estimated GFR () 140.7 Estimated GFR (Non- 121.4 BUN/Creatinine Ratio 11.8 10-20 Random Glucose 134 70-99 mg/dl Calcium Level 8.4 8.5-10.1 mg/dl Magnesium Level 2.1 1.8-2.4 mg/dl Total Bilirubin 0.3 0.2-1 mg/dl Aspartate Amino Transf (AST/SGOT) 10 15-37 U/L Alanine Aminotransferase (ALT/SGPT) 16 12-78 U/L Alkaline Phosphatase 52 45-117 U/L Total Protein 6.2 6.4-8.2 gm/dl Albumin 2.7 3.4-5.0 gm/dl Globulin 3.5 2.5-4.0 gm/dl Albumin/Globulin Ratio 0.8 0.9-2
[2017-06-09 19:34] LABS: HEMATOCRIT 39.4 % (42-52); HEMOGLOBIN 13.2 g/dL (14.0-18.0); MEAN CELL VOLUME 86.2 fL (80-100); MEAN CORPUSCULAR HEMOGLOBIN 28.9 pg (25-34); PLATELET COUNT 256 K/uL (130-400); RED CELL DISTRIBUTION WIDTH CV 12.7 % (11.5-14.5); RED CELL DISTRIBUTION WIDTH SD 40.2 fL (36.4-46.3); WHITE BLOOD COUNT 8.79 K/uL (4.8-10.8)
[2017-06-09 19:43] LABS: MEAN CORPUSCULAR HGB CONC 33.5 g/dl (32-36)
[2017-06-09] MEDS: MESALAMINE 4 GM/60 ML ENEMA BTL PR SCH (22:00)
[2017-06-09 23:18] VITALS: BP 146/67; PULSE 57; TEMP 36.6; O2SAT 97
[2017-06-10] MEDS: CIPROFLOXACIN / D5W 400 MG in PREMIXED IN D5W 200 ML IV SCH (04:17)
[2017-06-10] MEDS: SODIUM CHLORIDE 0.9% 1000ML 1,000 ML IV SCH ×2 (04:18→14:00)
[2017-06-10] MEDS: METHYLPREDNISOLONE IV 20 MG in SYRINGE 0 ML IV SCH ×2 (06:14→11:59)
[2017-06-10 07:05] VITALS: BP 152/77; PULSE 65; TEMP 36.6; O2SAT 97
[2017-06-10] MEDS: METRONIDAZOLE / NSS 500 MG in PREMIXED NSS 100 ML IV SCH (07:14)
[2017-06-10] MEDS: DICYCLOMINE HCL 10 MG CAP PO SCH ×2 (07:53→14:15)
[2017-06-10] MEDS: MULTIVITAMIN TAB PO SCH (07:53)
[2017-06-10] MEDS: MESALAMINE 400 MG CAPDR PO SCH ×2 (07:53→11:59)
[2017-06-10] MEDS: ASCORBIC ACID 500 MG TAB PO SCH (07:53)
[2017-06-10] MEDS: PANTOprazole SOD 40 MG TAB PO SCH (07:53)
--- NOTE | 2017-06-10 08:49 | Gastroenterology Progress Note ---
Progress Note Date of Service: Jun 10, 2017 Subjective Pt evaluation today including: conversation w/ patient, physical exam, chart review, lab review, review of studies, review of inpatient medication list Feeling better overall. Had 2-3 BM yesterday. One this Am. Some blood but improved. No abd pain. TOlerating diet. Review of Systems 12 systems reviewed and negative except as noted Medications Current Inpatient Medications Medications (Trade) Dose Ordered Sig/Kb Route Start Time Stop Time Status Last Admin Dose Admin Acetaminophen (Tylenol Tab) 650 mg Q4H PRN PO 06/07/17 15:15 07/07/17 15:14 Ondansetron HCl (Zofran Inj) 4 mg Q6H PRN IV 06/07/17 15:15 07/07/17 15:14 06/07/17 19:43 4 MG Ciprofloxacin/ Dextrose 400 mg/ Prmx 200 ml @ 100 mls/hr Q12H IV 06/07/17 16:00 06/17/17 15:59 06/10/17 04:17 100 MLS/HR Metronidazole 500 mg/Prmx 100 ml @ 100 mls/hr Q8H IV 06/07/17 15:30 06/17/17 15:29 06/10/17 07:14 100 MLS/HR Methylprednisolone Sodium Succinate 20 mg/Syringe 0.32 ml @ 1.5 mls/min Q6 IV 06/07/17 18:00 07/07/17 17:59 06/10/17 06:14 1.5 MLS/MIN Sodium Chloride 1,000 ml @ 100 mls/hr Q10H IV 06/07/17 16:15 07/07/17 16:14 06/10/17 04:18 100 MLS/HR Dicyclomine HCl (Bentyl Cap) 10 mg TID PO 06/07/17 20:00 07/07/17 19:59 06/10/17 07:53 10 MG Multivitamins (Multivitamin Tab) 1 tab DAILY PO 06/08/17 08:00 07/08/17 07:59 06/10/17 07:53 1 TAB Ascorbic Acid (Vitamin C Tab) 500 mg DAILY PO 06/08/17 08:00 07/08/17 07:59 06/10/17 07:53 500 MG Pantoprazole Sodium (Protonix Tab) 40 mg DAILY PO 06/08/17 08:00 1/28/18 07:59 06/10/17 07:53 40 MG Mesalamine (Delzicol Delayed Rel Cap) 1,600 mg TIDM PO 06/08/17 17:00 07/08/17 16:59 06/10/17 07:53 1,600 MG Mesalamine (Rowasa Enema) 4 gm HS IA 06/08/17 22:00 07/08/17 21:59 06/08/17 21:59 4 GM Objective Vital Signs Date Time Temp Pulse Resp B/P (MAP) Pulse Ox O2 Delivery O2 Flow Rate FiO2 06/10/17 08:00 Room Air 06/10/17 07:05 36.6 65 16 152/77 (102) 97 Room Air 06/09/17 23:18 36.6 57 18 146/67 (93) 97 Room Air 06/09/17 23:10 Room Air 06/09/17 16:00 Room Air 06/09/17 15:53 36.6 75 16 135/79 (97) 96 Room Air Physical Exam General Appearance: WD/WN, no apparent distress Eyes: normal inspection, PERRL ENT: normal ENT inspection, hearing grossly normal, pharynx normal Neck: supple, no adenopathy, no JVD Respiratory/Chest: chest non-tender, lungs clear, normal breath sounds, no respiratory distress Cardiovascular: regular rate, rhythm, no edema, no murmur Abdomen: normal bowel sounds, non tender, soft Extremities: normal range of motion, non-tender, no pedal edema Neurologic/Psych: vice president of product marketing II-XII nml as tested, no motor/sensory deficits, alert, normal mood/affect, oriented x 3 Skin: normal color, warm/dry, no rash Laboratory Results Last 24 Hours Test 06/09/17 19:24 White Blood Count 8.79 K/uL Red Blood Count 4.57 M/uL Hemoglobin 13.2 g/dL Hematocrit 39.4 % Mean Corpuscular Volume 86.2 fL Mean Corpuscular Hemoglobin 28.9 pg Mean Corpuscular Hemoglobin Concent 33.5 g/dl RDW Standard Deviation 40.2 fL RDW Coefficient of Variation 12.7 % Platelet Count 256 K/uL Mean Platelet Volume 10.0 fL Assessment and Plan 22 yo male with newly diagnosed IBD - Continue Cipro/Flagyl coverage for total of 10 days - Started on Mesalamine 1600mg TID PO, Mesalamine 4g [place] enema qHS. Please provide patietn with prescriptions upon discharge. - Likely may need biologics as well, thus TB quantiferon test, acute hepatitis serologies obtained. Sent message to GI clinic staff to check with pt's insurance about Humira vs Remicade coverage. We will arrange f/u with Dr. Keenan or Mirella Martini in the office. - Stop the IV steroids and convert to PO form and taper as follows: Prednisone 40mg daily x 1 week, then 30mg daily x 1 week, 20mg daily x 1 week, 15mg daily x 1 week, 10mg daily x 1 week, then 5mg daily x 1 week. Please provide prescription. - OK to discharge to home today.
--- NOTE | 2017-06-10 10:00 | NUR ---
ID: Patient admitted with diarrhea and dizziness. A&OX4. Denies pain, SOB, N/V. NSS infusing at 100ml/hr in the left wrist. No edema, positive pulses. Lungs are clear on room air. Abdomen is soft, nontender, nondistended. Positive bowel sounds. Tolerating his diet well. Independent in the room. Possible discharge this afternoon. Hourly rounding. Encouraged to ring for assistance. Will continue to monitor.
[2017-06-10 10:30] LABS: BASO % 0.1 %; BASO ABS # 0.01 K/uL (0-0.2); HEMATOCRIT 38.7 % (42-52); IG# 0.09 K/uL (0.00-0.02); LYMPH % 9.8 %; MEAN CELL VOLUME 86.8 fL (80-100); MEAN CORPUSCULAR HEMOGLOBIN 29.1 pg (25-34); MEAN PLATELET VOLUME 9.8 fL (7.4-10.4); MONO % 5.9 %; MONO ABS # 0.54 K/uL (0.11-0.59); NEUT % 83.2 %; NEUT ABS # 7.64 K/uL (1.4-6.5); PLATELET COUNT 227 K/uL (130-400); RED CELL DISTRIBUTION WIDTH CV 12.9 % (11.5-14.5); RED CELL DISTRIBUTION WIDTH SD 40.6 fL (36.4-46.3); WHITE BLOOD COUNT 9.18 K/uL (4.8-10.8)
[2017-06-10 10:35] LABS: MEAN CORPUSCULAR HGB CONC 33.6 g/dl (32-36)
[2017-06-10 11:09] LABS: ALBUMIN 2.6 gm/dl (3.4-5.0); CALCIUM 8.1 mg/dl (8.5-10.1); CREATININE 0.94 mg/dl (0.60-1.40); POTASSIUM 3.9 mmol/L (3.5-5.1); TOTAL PROTEIN 5.8 gm/dl (6.4-8.2)
[2017-06-10] MEDS ORDERED: PRED20TA2 PO (13:55)
[2017-06-10] MEDS ORDERED: PRD20 OR (13:55)
[2017-06-10] MEDS ORDERED: PRED10TA PO (13:55)
[2017-06-10] MEDS ORDERED: PRD5 OR ×2 (13:55→13:59)
[2017-06-10] MEDS ORDERED: PRD10 OR (13:59)
[2017-06-10] MEDS ORDERED: RWSE PR (14:02)
[2017-06-10] MEDS ORDERED: ASC400 PO (14:02)
--- NOTE | 2017-06-10 14:19 | Progress Note ---
Internal Med Progress Note Date of Service: Jun 10, 2017. Provider Documentation: SUBJECTIVE: Patient seen and examined at bedside. still some blood in stool but reports that it is improving OBJECTIVE: Exam: General Appearance: no apparent distress Head: normocephalic, atraumatic Eyes: normal inspection, EOMI ENT: hearing grossly normal Neck: supple, no JVD, trachea midline Respiratory/Chest: lungs clear, normal breath sounds, no respiratory distress Cardiovascular: regular rate, rhythm, no edema, normal peripheral pulses Abdomen/GI: normal bowel sounds, non tender, soft, no organomegaly Extremities/Musculoskelatal: normal inspection, no calf tenderness, normal capillary refill Neurologic/Psych: no motor/sensory deficits, alert, normal mood/affect, oriented x 3 ASSESSMENT & PLAN: s/p colonoscopy on : Inflammation characterized by altered vascularity, congestion (edema), erosions and granularity was found in a continuous and circumferential pattern from the rectum to the splenic flexure and from the ascending colon to the cecum. The severity of inflammation was worst in the rectum and sigmoid. The transverse colon was relatively spared. The inflammation was moderate to severe. Biopsies were taken with a cold forceps for histology. Fluid aspiration was performed through the scope suction channel. The amount of fluid collected was 10 mL. Sample(s) were sent for microbiology. The terminal ileum appeared normal. Impression: Colitis. Inflammation was found from the rectum to the splenic flexure and from the ascending colon to the cecum. This was moderate in severity. Discharge Instructions Continue Cipro/Flagyl coverage for at least 10 days (Patient already received 3 ays of IV Ciprofloxacin and IV Flagyl) - Will discharge with Ciprofloxacin 7 days of 500 mg every 12 hours, and Metronidazole 7 days of 500 mg q8 hours Patient was Started on Mesalamine 1600mg TID PO, Mesalamine 4g [place] enema qHS and prescriptions provided Patient was given IV steroids in the Hospital and will be discharged with prescriptions to complete Prednisone 40mg daily x 1 week, then 30mg daily x 1 week, 20mg daily x 1 week, 15mg daily x 1 week, 10mg daily x 1 week, then 5mg daily x 1 week. patient can then follow up with GI clinic and 06/12/2017 1:00 PM Bobbi James DO [facility] 06/14/2017 11:00 AM [facility], [facility] For re-scheduling [facility] appointments, patient can call [phone] Vital Signs: Date Time Temp Pulse Resp B/P (MAP) Pulse Ox O2 Delivery O2 Flow Rate FiO2 06/10/17 08:00 Room Air 06/10/17 07:05 36.6 65 16 152/77 (102) 97 Room Air 06/09/17 23:18 36.6 57 18 146/67 (93) 97 Room Air 06/09/17 23:10 Room Air 06/09/17 16:00 Room Air 06/09/17 15:53 36.6 75 16 135/79 (97) 96 Room Air Lab Results: Results Past 24 Hours Test 06/09/17 19:24 06/10/17 10:19 Range/Units White Blood Count 8.79 9.18 4.8-10.8 K/uL Red Blood Count 4.57 4.46 4.7-6.1 M/uL Hemoglobin 13.2 13.0 14.0-18.0 g/dL Hematocrit 39.4 38.7 42-52 % Mean Corpuscular Volume 86.2 86.8 80-100 fL Mean Corpuscular Hemoglobin 28.9 29.1 25-34 pg Mean Corpuscular Hemoglobin Concent 33.5 33.6 32-36 g/dl RDW Standard Deviation 40.2 40.6 36.4-46.3 fL RDW Coefficient of Variation 12.7 12.9 11.5-14.5 % Platelet Count 256 227 130-400 K/uL Mean Platelet Volume 10.0 9.8 7.4-10.4 fL Neutrophils (%) (Auto) 83.2 % Lymphocytes (%) (Auto) 9.8 % Monocytes (%) (Auto) 5.9 % Eosinophils (%) (Auto) 0.0 % Basophils (%) (Auto) 0.1 % Neutrophils # (Auto) 7.64 1.4-6.5 K/uL Lymphocytes # (Auto) 0.90 1.2-3.4 K/uL Monocytes # (Auto) 0.54 0.11-0.59 K/uL Eosinophils # (Auto) 0.00 0-0.5 K/uL Basophils # (Auto) 0.01 0-0.2 K/uL Immature Granulocyte % (Auto) 1.0 % Immature Granulocyte # (Auto) 0.09 0.00-0.02 K/uL Sodium Level 140 136-145 mmol/L Potassium Level 3.9 3.5-5.1 mmol/L Chloride Level 105 98-107 mmol/L Carbon Dioxide Level 29 21-32 mmol/L Anion Gap 6.0 3-11 mmol/L Blood Urea Nitrogen 11 7-18 mg/dl Creatinine 0.94 0.60-1.40 mg/dl Est Creatinine Clear Calc Drug Dose 142.3 ml/min Estimated GFR () 131.0 Estimated GFR (Non- 113.0 BUN/Creatinine Ratio 12.0 10-20 Random Glucose 190 70-99 mg/dl Calcium Level 8.1 8.5-10.1 mg/dl Total Bilirubin 0.2 0.2-1 mg/dl Aspartate Amino Transf (AST/SGOT) 11 15-37 U/L Alanine Aminotransferase (ALT/SGPT) 18 12-78 U/L Alkaline Phosphatase 53 45-117 U/L Total Protein 5.8 6.4-8.2 gm/dl Albumin 2.6 3.4-5.0 gm/dl Globulin 3.2 2.5-4.0 gm/dl Albumin/Globulin Ratio 0.8 0.9-2
[2017-06-10] MEDS ORDERED: CPR500 OR (14:39)
[2017-06-10] MEDS ORDERED: METR500T PO (14:39)
--- NOTE | 2017-06-10 14:42 | Discharge Instructions ---
Discharge Instructions Date of Service Jun 10, 2017. Admission Reason for Admission: Diarrhea,Dizzness Discharge Discharge Diagnosis / Problem: colitis, blood in stool Discharge Goals Goal(s): Decrease discomfort, Improve function, Increase independence, Improve disease control Activity Recommendations Activity Limitations: per Instructions/Follow-up section Shower/Bathe: no limitations . Instructions / Follow-Up Instructions / Follow-Up s/p colonoscopy on : Inflammation characterized by altered vascularity, congestion (edema), erosions and granularity was found in a continuous and circumferential pattern from the rectum to the splenic flexure and from the ascending colon to the cecum. The severity of inflammation was worst in the rectum and sigmoid. The transverse colon was relatively spared. The inflammation was moderate to severe. Biopsies were taken with a cold forceps for histology. Fluid aspiration was performed through the scope suction channel. The amount of fluid collected was 10 mL. Sample(s) were sent for microbiology. The terminal ileum appeared normal. Impression: Colitis. Inflammation was found from the rectum to the splenic flexure and from the ascending colon to the cecum. This was moderate in severity. Discharge Instructions Continue Cipro/Flagyl coverage for at least 10 days (Patient already received 3 ays of IV Ciprofloxacin and IV Flagyl) - Will discharge with Ciprofloxacin 7 days of 500 mg every 12 hours, and Metronidazole 7 days of 500 mg q8 hours Patient was Started on Mesalamine 1600mg TID PO, Mesalamine 4g [place] enema qHS and prescriptions provided Patient was given IV steroids in the Hospital and will be discharged with prescriptions to complete Prednisone 40mg daily x 1 week, then 30mg daily x 1 week, 20mg daily x 1 week, 15mg daily x 1 week, 10mg daily x 1 week, then 5mg daily x 1 week. patient can then follow up with GI clinic and 06/12/2017 1:00 PM Bobbi James DO [facility] 06/14/2017 11:00 AM [facility] Gastroenterology, [facility] For re-scheduling [facility] appointments, patient can call [phone] Current Hospital Diet Patient's current hospital diet: Low Fiber Diet, Low Lactose Diet Discharge Diet Recommended Diet: N/A (low fiber, low lactose) Procedures Procedures Performed: Colonoscopy with biopsy and stool aspirate, Dr Keenan Pending Studies Studies pending at discharge: no Laboratory Results 06/10/17 10:19 Red Blood Count 4.46, Mean Corpuscular Volume 86.8, Mean Corpuscular Hemoglobin 29.1, Mean Corpuscular Hemoglobin Concent 33.6, Mean Platelet Volume 9.8, Neutrophils (%) (Auto) 83.2, Lymphocytes (%) (Auto) 9.8, Monocytes (%) (Auto) 5.9, Eosinophils (%) (Auto) 0.0, Basophils (%) (Auto) 0.1, Neutrophils # (Auto) 7.64, Lymphocytes # (Auto) 0.90, Monocytes # (Auto) 0.54, Eosinophils # (Auto) 0.00, Basophils # (Auto) 0.01 06/10/17 10:19 Test 06/07/17 15:50 06/07/17 16:55 06/08/17 08:53 06/08/17 10:25 Erythrocyte Sedimentation Rate 18 mm/hr (0-14) C-Reactive Protein 17.50 mg/dl (0-0.29) Stool Cryptosporidium Antigen NOT DETECTED (NOT DETECTED) Test 06/08/17 10:44 06/09/17 07:58 06/10/17 10:19 Hepatitis B Surface Antigen NEG (NEG) Hepatitis B Surface Antibody NEG Hepatitis B Core Total Antibody NON-REACTIVE (NON-REACTIVE) Hepatitis C Antibody NEG (NEG) Magnesium Level 2.1 mg/dl (1.8-2.4) White Blood Count 9.18 K/uL (4.8-10.8) Red Blood Count 4.46 M/uL (4.7-6.1) Hemoglobin 13.0 g/dL (14.0-18.0) Hematocrit 38.7 % (42-52) Mean Corpuscular Volume 86.8 fL (80-100) Mean Corpuscular Hemoglobin 29.1 pg (25-34) Mean Corpuscular Hemoglobin Concent 33.6 g/dl (32-36) Platelet Count 227 K/uL (130-400) Mean Platelet Volume 9.8 fL (7.4-10.4) Neutrophils (%) (Auto) 83.2 % Lymphocytes (%) (Auto) 9.8 % Monocytes (%) (Auto) 5.9 % Eosinophils (%) (Auto) 0.0 % Basophils (%) (Auto) 0.1 % Neutrophils # (Auto) 7.64 K/uL (1.4-6.5) Lymphocytes # (Auto) 0.90 K/uL (1.2-3.4) Monocytes # (Auto) 0.54 K/uL (0.11-0.59) Eosinophils # (Auto) 0.00 K/uL (0-0.5) Basophils # (Auto) 0.01 K/uL (0-0.2) RDW Standard Deviation 40.6 fL (36.4-46.3) RDW Coefficient of Variation 12.9 % (11.5-14.5) Immature Granulocyte % (Auto) 1.0 % Immature Granulocyte # (Auto) 0.09 K/uL (0.00-0.02) Anion Gap 6.0 mmol/L (3-11) Est Creatinine Clear Calc Drug Dose 142.3 ml/min Estimated GFR () 131.0 Estimated GFR (Non- 113.0 BUN/Creatinine Ratio 12.0 (10-20) Calcium Level 8.1 mg/dl (8.5-10.1) Total Bilirubin 0.2 mg/dl (0.2-1) Aspartate Amino Transf (AST/SGOT) 11 U/L (15-37) Alanine Aminotransferase (ALT/SGPT) 18 U/L (12-78) Alkaline Phosphatase 53 U/L (45-117) Total Protein 5.8 gm/dl (6.4-8.2) Albumin 2.6 gm/dl (3.4-5.0) Globulin 3.2 gm/dl (2.5-4.0) Albumin/Globulin Ratio 0.8 (0.9-2) Date/Time Source Procedure Growth Status 06/07/17 18:00 Nasal MRSA DNA Surveillance Screen - Final Specimen Negative for MRSA by DNA Probe Complete 06/08/17 08:53 Stool Rotavirus Antigen - Final SPECIMEN NEGATIVE FOR ROTAVIRUS ANTIGEN Complete Medical Emergencies . Who to Call and When: Medical Emergencies: If at any time you feel your situation is an emergency, please call 911 immediately. . Non-Emergent Contact Non-Emergency issues call your: Primary Care Provider, [employer] . . "Provider Documentation" section prepared by Surjit Tineo. . VTE Core Measure Inpt VTE Proph given/why not?: SCD's
[2017-06-10 15:08] VITALS: BP 152/77; PULSE 65; TEMP 36.6; O2SAT 97
--- NOTE | 2017-06-10 15:24 | NUR ---
A: Pt d/c per md order. All prescriptions given to pt. d/c paperwork reviewed and signed. IV site removed and dressed. All belongings sent with pt. Pt walked out independently.
--- NOTE | 2017-06-10 17:07 | NUR ---
A/ ACCESSED PATIENT RECORD FOR CLINICAL COORDINATOR, CARROL, TO ASSIST WITH DISCHARGE MEDICATION CLARIFICATION FOR PREDNISONE.
[2017-06-11] MEDS ORDERED: MESA800T2 OR (09:54)
[2017-06-14 13:32] LABS: QUANTIF MITOGEN-NIL 9.15 IU/ML; QUANTIFERON NEGATIVE (NEGATIVE); QUANTIFERON NIL 0.02 IU/ML
--- NOTE | 2017-06-23 05:55 | Discharge Summary ---
Discharge Summary Date of Service Jun 23, 2017. Discharge Summary Admission Date: Jun 07, 2017 at 14:37 Discharge Date: Jun 10, 2017 Discharge Disposition: Home Principal Diagnosis: colitis, blood in stool Consultations: gastroenterology Pending Studies/Follow-Up: A. COLON; CECUM TO ASCENDING; BIOPSIES: 1. ACTIVE COLITIS, MILD. 2. FEATURES OF CHRONIC COLITIS NOT IDENTIFIED. 3. IMMUNOHISTOCHEMICAL STAIN FOR CMV NEGATIVE. 4. NEGATIVE FOR DYSPLASIA AND MALIGNANCY. B. COLON, TRANSVERSE, BIOPSIES: 1. BENIGN COLONIC MUCOSA WITHOUT PATHOLOGIC CHANGE. 2. NO ACUTE OR CHRONIC COLITIS IDENTIFIED. 3. NEGATIVE FOR DYSPLASIA AND MALIGNANCY. C. COLON, LEFT, BIOPSIES: 1. MODERATE ACTIVE COLITIS WITH ULCERATION. 2. FOCAL FEATURES SUGGESTIVE OF CHRONIC COLITIS. SEE COMMENT. 3. IMMUNOHISTOCHEMICAL STAIN FOR CMV NEGATIVE. 4. NEGATIVE FOR DYSPLASIA AND MALIGNANCY. Medication Reconciliation New Medications: Ciprofloxacin (Ciprofloxacin HCl) 500 Mg Tab 1 TAB OR Q12 for 7 Days, #14 TAB Mesalamine (Mesalamine Dr) 800 Mg Tab 2 TAB OR TID for 30 Days, #180 TAB Prednisone (Prednisone) 5 Mg Tab 1 TAB OR DAILY for 7 Days, #7 TAB Prednisone (Prednisone) 20 Mg Tab 1 TAB OR DAILY for 7 Days, #7 TAB Prednisone (Prednisone) 5 Mg Tab 3 TAB OR DAILY for 7 Days, #21 TAB Prednisone (Prednisone) 10 Mg Tab 3 TAB OR DAILY for 7 Days, #21 TAB Mesalamine (Delzicol) 400 Mg Cap 1600 MG PO TIDM for 30 Days, #120 CAP Mesalamine (Mesalamine) 4 Gm/60 Ml Enem [address] HS for 30 Days, #1800 ML Continued Medications: Ascorbic Acid (Vitamin C) 100 Mg Tab 100 MG PO DAILY Dicyclomine Hcl (Bentyl) 10 Mg Cap 1 CAP PO TID, CAP Multivitamin (Multivitamin) Tab 1 TAB PO DAILY, TAB Pantoprazole Sodium (Protonix) 20 Mg Tab 1 TAB PO DAILY for 30 Days, #30 TAB Admission Information HPI (per Admitting provider): 22 year old male who was referred by direct admission by the GI clinic for dehydration and diarrhea. Patient reports his symptoms have been going on for the past 6 months and have been progressively getting worse. He reports up to 11 bowel movements per day. He is having bright red blood. He denies dark tarry stools. He has had some intermittent LLQ abdominal pain. He has had a poor appetite and developed vomiting the past two days. He denies hematemesis or coffee ground emesis. He reports a 40 pound weight loss. He has had chills but did not take his temperature. He reports feeling lightheaded and dizzy, no syncopal events. He denies chest pain, shortness of breath, palpitations. No urinary symptoms. He has had two ER visits for these symptoms, most recently being on 06/06. He had a CT abd/pelvis that showed wall thickening of the sigmoid and distal descending colon. At the time of my exam, patient is resting in bed in no acute distress. Physical Exam (per Admitting): General Appearance: no apparent distress, + thin Head: normocephalic, atraumatic Eyes: normal inspection, EOMI, sclerae normal ENT: hearing grossly normal, + pertinent finding (mucous membranes moist) Neck: supple, no JVD, trachea midline Respiratory/Chest: lungs clear, normal breath sounds, no respiratory distress Cardiovascular: regular rate, rhythm, no edema, normal peripheral pulses Abdomen/GI: normal bowel sounds, non tender, soft, no organomegaly Extremities/Musculoskelatal: normal inspection, no calf tenderness, normal capillary refill Neurologic/Psych: no motor/sensory deficits, alert, normal mood/affect, oriented x 3 Skin: normal color, warm/dry Hospital Course s/p colonoscopy on : Inflammation characterized by altered vascularity, congestion (edema), erosions and granularity was found in a continuous and circumferential pattern from the rectum to the splenic flexure and from the ascending colon to the cecum. The severity of inflammation was worst in the rectum and sigmoid. The transverse colon was relatively spared. The inflammation was moderate to severe. Biopsies were taken with a cold forceps for histology. Fluid aspiration was performed through the scope suction channel. The amount of fluid collected was 10 mL. Sample(s) were sent for microbiology. The terminal ileum appeared normal. Impression: Colitis. Inflammation was found from the rectum to the splenic flexure and from the ascending colon to the cecum. This was moderate in severity. Discharge Instructions Continue Cipro/Flagyl coverage for at least 10 days (Patient already received 3 ays of IV Ciprofloxacin and IV Flagyl) - Will discharge with Ciprofloxacin 7 days of 500 mg every 12 hours, and Metronidazole 7 days of 500 mg q8 hours Patient was Started on Mesalamine 1600mg TID PO, Mesalamine 4g CT enema qHS and prescriptions provided Patient was given IV steroids in the Hospital and will be discharged with prescriptions to complete Prednisone 40mg daily x 1 week, then 30mg daily x 1 week, 20mg daily x 1 week, 15mg daily x 1 week, 10mg daily x 1 week, then 5mg daily x 1 week. patient can then follow up with GI clinic and 06/12/2017 1:00 PM Bobbi James DO [facility] 06/14/2017 11:00 AM [facility] Gastroenter[facility], [facility] For re-scheduling [facility] appointments, patient can call [phone] Total time spent on discharge = This includes examination of the patient, discharge planning, medication reconciliation, and communication with other providers. Discharge Instructions s/p colonoscopy on : Inflammation characterized by altered vascularity, congestion (edema), erosions and granularity was found in a continuous and circumferential pattern from the rectum to the splenic flexure and from the ascending colon to the cecum. The severity of inflammation was worst in the rectum and sigmoid. The transverse colon was relatively spared. The inflammation was moderate to severe. Biopsies were taken with a cold forceps for histology. Fluid aspiration was performed through the scope suction channel. The amount of fluid collected was 10 mL. Sample(s) were sent for microbiology. The terminal ileum appeared normal. Impression: Colitis. Inflammation was found from the rectum to the splenic flexure and from the ascending colon to the cecum. This was moderate in severity. Discharge Instructions Continue Cipro/Flagyl coverage for at least 10 days (Patient already received 3 ays of IV Ciprofloxacin and IV Flagyl) - Will discharge with Ciprofloxacin 7 days of 500 mg every 12 hours, and Metronidazole 7 days of 500 mg q8 hours Patient was Started on Mesalamine 1600mg TID PO, Mesalamine 4g CT enema qHS and prescriptions provided Patient was given IV steroids in the Hospital and will be discharged with prescriptions to complete Prednisone 40mg daily x 1 week, then 30mg daily x 1 week, 20mg daily x 1 week, 15mg daily x 1 week, 10mg daily x 1 week, then 5mg daily x 1 week. patient can then follow up with GI clinic and 06/12/2017 1:00 PM Bobbi James DO [facility] [place] 06/14/2017 11:00 AM [facility] G[facility], [facility] For re-scheduling [facility] appointments, patient can call [phone]
== END 2017-06-10 15:30 | disposition home or self-care (01) | DRG 392 ==
LOC: C.MS4W 14:37 → OBSVTOIN 14:37
PROVIDERS: ADMIT Internal Medicine; ATTEND Hospitalist
PROC: 0DBL8ZX Excision of Transverse Colon, Via Natural or Artificial Opening Endoscopic, Diagnostic (ICD-10-PCS; principal; 2017-06-08 08:18)
PROC: 0DBM8ZX Excision of Descending Colon, Via Natural or Artificial Opening Endoscopic, Diagnostic (ICD-10-PCS; principal; 2017-06-08 08:18)
PROC: 0DBH8ZX Excision of Cecum, Via Natural or Artificial Opening Endoscopic, Diagnostic (ICD-10-PCS; principal; 2017-06-08 08:18)
DX: K52.9 Noninfective gastroenteritis and colitis, unspecified (principal); K92.1 Melena; E86.0 Dehydration; R63.4 Abnormal weight loss; Z79.899 Other long term (current) drug therapy